=== PATIENT | female | born 1990 | race African-American/Black ===

== ENCOUNTER 2021-01-19 07:37 | Emergency (ER) | payer OTHER, SELFPAY ==
--- NOTE | ~2021-01-19 | CT_ITS ---
EXAMINATION: CT ABDOMEN AND PELVIS WITH CONTRAST CLINICAL INFORMATION: Right CVA tenderness COMPARISON: Previous CT of the abdomen and pelvis most recent September 2019 TECHNIQUE: Multidetector volumetric images were obtained from the superior aspect of the liver through the pubic symphysis following administration 85 mL of Omnipaque 350 intravenous contrast. Sagittal and coronal reformatted images were obtained on the technologist's workstation. Oral contrast: Yes This CT examination was performed using dose optimization techniques as appropriate, variously including the following: *Automated exposure control *Adjustment of mA and/or kV according to patient size (this includes techniques or standardized protocols for targeted exams where dose is matched to indication/reason for exam; i.e. extremities or head) *Use of iterative reconstruction technique DLP: 571 mGy-cm FINDINGS: LUNG BASES: The visualized lung bases are unremarkable. LIVER, GALLBLADDER, AND BILIARY TREE: The liver and gallbladder are unremarkable. No focal liver lesion or biliary duct dilatation. PANCREAS: Unremarkable. SPLEEN: Unremarkable. ADRENAL GLANDS: Unremarkable. KIDNEYS AND URETERS: There is ill-defined low-attenuation area seen in the lower pole of the right kidney. There is mild right hydronephrosis. There is enhancement of the right urothelium. There is mild perinephric fat stranding surrounding the right kidney. Findings are suggestive of infection/pyelonephritis. This is new from previous exam September 2019. The left kidney is unremarkable. No renal or ureteral stone is seen. BLADDER: Unremarkable. GASTROINTESTINAL TRACT: The small and large bowel are unremarkable. The appendix is unremarkable. ABDOMINAL WALL: No significant hernia is appreciated. LYMPH NODES: Normal. VASCULAR: Unremarkable. PELVIC VISCERA: Unremarkable. OSSEOUS STRUCTURES: Unremarkable. CT/CT abdomen pelvis w con IMPRESSION: Ill-defined low-attenuation areas in the right kidney, mild right hydronephrosis and mild enhancement of the right urothelium. Findings are suggestive of infection/pyelonephritis. No stone is seen.
[2021-01-19 08:09] VITALS: BP 103/63; PULSE 110; RESP 18; TEMP 38.2; O2SAT 99; BMI 27.8
--- NOTE | 2021-01-19 09:01 | ED_ITS ---
HPI - General Adult General Chief complaint: General Medical Stated complaint: flu like symptoms Time Seen by Provider: 01/19/21 09:01 Source: patient Mode of arrival: ambulatory Limitations: no limitations History of Present Illness HPI narrative: 31-year-old female presents for 2 days of chills, fever, body aches, and headaches. Patient is not vaccinated for COVID. Patient also describes a fishy odor to her urine and to her vaginal discharge. Patient is on her period now. No dysuria, no hematuria, no urgency or frequency. No pelvic pain, no nausea, vomiting, or abdominal pain. Patient is sexually active. No URI symptoms, no cough or runny nose. Patient states she has had a kidney infection for which she was hospitalized in the past, and this feels like a kidney infection today. Related Data Previous Rx's Medication Instructions Recorded ibuprofen 800 mg tablet 800 mg PO Q8H 14 Days #42 tab 01/19/21 levofloxacin 750 mg tablet 750 mg PO DAILY 7 Days #7 tab 01/19/21 ondansetron HCl 4 mg tablet 4 mg PO Q8H 1 Days #3 tab 01/19/21 (Zofran) Allergies Allergy/AdvReac Type Severity Reaction Status Date / Time No Known Allergies Allergy Verified 01/19/21 08:15 [No Known Allergies*] Review of Systems Constitutional: Constitutional: Reports body ache(s), Reports fatigue and Reports malaise Eyes: Eyes: Denies diplopia ENT: Denies vertigo, Denies dizziness, Denies otalgia, Denies mouth pain, Denies post nasal drip, Denies sinus pain, Denies sinus pressure, Denies sore throat and Denies throat swelling Cardiovascular: Cardiovascular: Denies chest pain, Denies syncope, Denies leg edema, Denies lightheadedness, Denies Loss of Consciousness, Denies palpitations and Denies dyspnea Respiratory: Respiratory: Denies chest congestion, Denies cough and Denies dyspnea Gastrointestinal: Gastrointestinal: Denies abdominal pain, Denies hematoc hezia, Denies constipation, Denies diarrhea and Denies vomiting Genitourinary: Genitourinary: Denies dysuria, Denies pelvic pain, Reports flank pain (right), Denies urinary incontinence, Denies urinary hesitancy, Denies urinary urgency, Reports vaginal discharge and Reports vaginal odor Musculoskeletal: Musculoskeletal: Reports myalgias Integumentary/Breasts: Skin/Breast: Denies erythema and Denies rash Neurologic: Denies confusion, Denies vertigo, Denies dizziness and Denies syncope Psychiatric: Psychiatric: Denies anxiety, Denies confusion and Denies depression Endocrine: Endocrine: Reports fatigue and Denies palpitations Allergic/Immunologic: Allergic/Immunologic: Denies throat swelling PMFSH Past Medical History Medical History (Updated 01/19/21 @ 14:21 by SEEMA Silverman) No known health problems Social History Social History Advance Directives: No Patient : No Physical Exam Vital Signs: Vital Signs: Last Vital Signs Temp 99.0 F 01/19/21 11:30 Pulse 78 01/19/21 11:30 Resp 18 01/19/21 11:30 BP 120/70 01/19/21 11:30 Pulse Ox 97 01/19/21 11:30 Body Mass Index 27.8 Const: General: no acute distress, alert, awake and ill appearing acutely; No confusion Nutritional Appearance: well nourished Orientation/consciousness: patient oriented x3 and No confusion Limitations: no limitations HENMT: Head: Yes normal to inspection, Yes normocephalic and Yes atraumatic Ears: hearing grossly normal bilaterally, external ears normal, TM's normal bilaterally and EAC's normal General nose exam: Normal external nose present Face and sinus: Yes normal facial exam and Yes sinuses nontender Mouth: Normal oral and palatal mucosa present Throat: Yes posterior oropharynx normal Eyes: Conjunctivae: conjunctivae normal Pupils: Equal, round and reactive pupils present EOM: EOMs intact bilaterally Neck: Neck: Yes full ROM, Yes no lymphadenopathy and Yes supple Resp: Effort & Inspection: normal respiratory effort and able to speak in complete sentences Auscultation: clear to auscultation bilaterally, no crackles, no rales, no rhonchi and no wheezes Cardio: Rate: regular rate Rhythm: regular rhythm Heart sounds: S1 normal heart sound present and S2 normal heart sound present GI: Inspection: Yes normal to inspection Palpation (GI): Soft to palpation, nontender, no guarding and not rigid Percussion: Yes normal to percussion Auscultation: normal bowel sounds : General: Yes CVA tenderness on the right External Female Exam: normal external appearance Speculum Exam - Vagina: vaginal bleeding Speculum Exam - Cervix: normal appearance of the cervix and nontender Bimanual exam- vagina & uterus: No Cervical tenderness present OB/external & speculum: vaginal bleeding Back/Spine/Pelvis: Back: CVA tenderness Skin: General skin exam: no rashes or lesions noted Neuro: General: patient oriented x3 and No confusion Cranial nerves: Yes Equal, round and reactive pupils present Extrem: General: Yes normal to inspection and Yes full ROM Psych: Appearance: grossly normal Affect: normal affect Attitude: fran ative Thought process: Normal thought process present Course Course Course Narrative: 31-year-old female presents for 2 days of fever, chills, body ache, right flank pain, vaginal discharge and foul odor to her urine. Patient is febrile with a heart rate of 110. On exam, patient has rigors and right CVA tenderness. Will get urine, labs, blood cultures, lactate, start fluids, get pelvic exam, CT to rule out pyelonephritis. Patient's labs are remarkable only for mildly elevated aminotransferase is. Patient's urine is dirty, positive nitrate, positive leukocyte esterase, 15-29 white blood cells. Started patient on Levaquin Awaiting CT scan which is not been read. Called lab about BV swabs, those will return tomorrow. Ill-defined low-attenuation areas in the right kidney, mild right hydronephrosis and mild enhancement of the right urothelium. Findings are suggestive of infection/pyelonephritis.? No stone is seen. Will treat with levofloxacin. Counseled patient to return if she had worsening back pain, fevers, nausea, vomiting. On re-examine, patient is feeling much better, heart rate is within normal limits, patient is not afebrile. Discussed with patient to have a low threshold to return to the emergency room. We did not get the swab for the bacterial vaginosis back yet today, will call her tomorrow if it is positive. Medical Decision Making Lab Data Result diagrams: 01/19/21 09:31 01/19/21 09:32 Labs: Lab Results 01/19/21 01/19/21 01/19/21 Range/Units 09:23 09:24 09:31 WBC 10.8 (4.8-10.8) X10*3/uL RBC 4.68 (4.20-5.50) X10*6/uL Hgb 12.0 (12.0-16.0) g/dl Hct 36.3 L (37-47) % MCV 77.6 L (80-98) fL MCH 25.6 L (27.0-33.0) pg MCHC 33.1 (31.0-35.0) g/dl RDW 13.5 (11.0-16.0) % Plt Count 286 (160-400) X10*3/uL MPV 11.0 (9.4-12.3) fL Immature Gran % (Auto) 0.3 (0.0-0.4) % Neut % (Auto) 76.7 H (45-73) % Lymph % (Auto) 7.6 L (20-40) % [place] % (Auto) 14.7 H (2-11) % Eos % (Auto) 0.2 (0-4) % Baso % (Auto) 0.5 (0-2) % Lymph # (Auto) 0.8 L (1.2-4.9) X10*3/uL [place] # (Auto) 1.6 H (0.1-1.2) X10*3/uL Eos # (Auto) 0.0 (0.0-0.4) X10*3/uL Baso # (Auto) 0.1 (0.0-0.2) X10*3/uL Abs Immat Gran (auto) 0.03 (0.00-0.03) X10*3/uL Absolute Neuts (auto) 8.3 (2.0-8.3) X10*3/uL Absolute Nucleated RBC 0.000 (0.0-0.012) X10*3/uL Nucleated RBC % (auto) 0.0 (0.0-0.2) /100WBC Smear Tech's Comments VERIFIED Sodium (135-145) mmol/L Potassium (3.3-5.1) mmol/L Chloride (96-108) mmol/L Carbon Dioxide (22-29) mmol/L Anion Gap (12-20) BUN (9-16) mg/dL Creatinine (0.5-1.4) mg/dL Estim Creat Clear Calc Estimated GFR Random Glucose (60-115) mg/dL Lactic Acid (0.5-2.0) mmol/L Calcium (8.4-10.2) mg/dL Total Bilirubin (0.0-1.0) mg/dL AST (5-31) U/L ALT (0-31) U/L Alkaline Phosphatase (39-117) U/L Total Protein (6.5-8.0) g/dL Albumin (3.5-5.0) g/dL Beta HCG, Quant mIU/mL Urine Color YELLOW Urine Appearance HAZY Urine pH 6.0 (5.0-8.0) Ur Specific [place] 1.010 (1.005-1.025) Urine Protein 1+ H (NEG-TRACE) MG/DL Urine Glucose (UA) NEG (NEG) MG/DL Urine Ketones NEG (NEG) MG/DL Urine Blood 3+ H (NEG) Urine Nitrite POS H (NEG) Ur Leukocyte Esterase 1+ H (NEG) Urine RBC 30-49 H (0) /HPF Urine WBC 15-29 H (0-4) /HPF Ur Squamous Epith Cells 1+ /LPF Urine Bacteria 4+ /LPF Coronavirus (PCR) NEGATIVE (Negative) Influenza Type A (PCR) NEGATIVE (Negative) Influenza Type B (PCR) NEGATIVE (Negative) RSV RNA Qual (PCR) NEGATIVE (Negative) 01/19/21 01/19/21 Range/Units 09:32 10:00 WBC (4.8-10.8) X10*3/uL RBC (4.20-5.50) X10*6/uL Hgb (12.0-16.0) g/dl Hct (37-47) % MCV (80-98) fL MCH (27.0-33.0) pg MCHC (31.0-35.0) g/dl RDW (11.0-16.0) % Plt Count (160-400) X10*3/uL MPV (9.4-12.3) fL Immature Gran % (Auto) (0.0-0.4) % Neut % (Auto) (45-73) % Lymph % (Auto) (20-40) % [place] % (Auto) (2-11) % Eos % (Auto) (0-4) % Baso % (Auto) (0-2) % Lymph # (Auto) (1.2-4.9) X10*3/uL [place] # (Auto) (0.1-1.2) X10*3/uL Eos # (Auto) (0.0-0.4) X10*3/uL Baso # (Auto) (0.0-0.2) X10*3/uL Abs Immat Gran (auto) (0.00-0.03) X10*3/uL Absolute Neuts (auto) (2.0-8.3) X10*3/uL Absolute Nucleated RBC (0.0-0.012) X10*3/uL Nucleated RBC % (auto) (0.0-0.2) /100WBC Smear Tech's Comments Sodium 137 (135-145) mmol/L Potassium 4.0 (3.3-5.1) mmol/L Chloride 105 (96-108) mmol/L Carbon Dioxide 23 (22-29) mmol/L Anion Gap 13 (12-20) BUN 8 L (9-16) mg/dL Creatinine 0.74 (0.5-1.4) mg/dL Estim Creat Clear Calc 113.1 Estimated GFR > 60 Random Glucose 94 (60-115) mg/dL Lactic Acid 0.9 (0.5-2.0) mmol/L Calcium 9.4 (8.4-10.2) mg/dL Total Bilirubin 0.7 (0.0-1.0) mg/dL AST 37 H (5-31) U/L ALT 45 H (0-31) U/L Alkaline Phosphatase 85 (39-117) U/L Total Protein 7.7 (6.5-8.0) g/dL Albumin 4.3 (3.5-5.0) g/dL Beta HCG, Quant < 2 mIU/mL Urine Color Urine Appearance Urine pH (5.0-8.0) Ur Specific [place] (1.005-1.025) Urine Protein (NEG-TRACE) MG/DL Urine Glucose (UA) (NEG) MG/DL Urine Ketones (NEG) MG/DL Urine Blood (NEG) Urine Nitrite (NEG) Ur Leukocyte Esterase (NEG) Urine RBC (0) /HPF Urine WBC (0-4) /HPF Ur Squamous Epith Cells /LPF Urine Bacteria /LPF Coronavirus (PCR) (Negative) Influenza Type A (PCR) (Negative) Influenza Type B (PCR) (Negative) RSV RNA Qual (PCR) (Negative) Discharge Plan Discharge Clinical Impression: Pyelonephritis Patient Disposition: Home, Self-Care Instructions: Kidney Infection (ED) Additional Instructions: Please go home and rest. Please drink plenty of fluids. I want you to drink 2- 3 L of water a day for the next 3 days. Please take the antibiotic once a day as I prescribed, you may take ibuprofen 3 times a day every 8 hours. Take the Zofran for nausea as needed. Please return to the emergency room if you have worsening back pain, fevers, nausea and vomiting were you cannot eat or drink. We did not get the swab for the bacterial vaginosis back yet today, will call you tomorrow if it is positive. Please call your PCP for a follow up appointment Prescriptions: New levofloxacin 750 mg tablet 750 mg PO DAILY 7 Days Qty: 7 RF: 0 ibuprofen 800 mg tablet 800 mg PO Q8H 14 Days Qty: 42 RF: 0 ondansetron HCl [Zofran] 4 mg tablet 4 mg PO Q8H 1 Days Qty: 3 RF: 0
[2021-01-19] MEDS: Ibuprofen 800 MG TABLET PO (09:37)
[2021-01-19] MEDS: 0.9 % Sodium Chloride 1,000 ML 2250 ML IV (09:37)
[2021-01-19] MEDS: Acetaminophen 325 MG TABLET 975 MG PO (09:37)
[2021-01-19 09:39] LABS: Appearance Urine HAZY; Color Urine YELLOW; Glucose Urine UA NEG (NEG); Leukocyte Esterase Urine 1+ (NEG); Nitrite Urine POS (NEG); UACC Culture Trigger YES; Urine Blood 3+ (NEG); Urine Ketones NEG (NEG); Urine Protein 1+ MG/DL (NEG-TRACE)
[2021-01-19 09:39] LABS: Basophils Absolute Auto 0.1 X10*3/uL (0.0-0.2); Basophils Percent Auto 0.5 % (0-2); Eosinophils Percent Auto 0.2 % (0-4); Hematocrit 36.3 % (37-47); Imm Gran Abs Auto 0.03 X10*3/uL (0.00-0.03); Imm Gran Pct Auto 0.3 % (0.0-0.4); Lymphocytes Absolute Auto 0.8 X10*3/uL (1.2-4.9); Lymphocytes Percent Auto 7.6 % (20-40); MANUAL DIFF FLAG SCAN; Mean Corpuscular HGB Conc 33.1 g/dl (31.0-35.0); Mean Corpuscular Hemoglobin 25.6 pg (27.0-33.0); Mean Corpuscular Volume 77.6 fL (80-98); Monocytes Absolute Auto 1.6 X10*3/uL (0.1-1.2); Monocytes Percent Auto 14.7 % (2-11); Neutrophils Absolute Auto 8.3 X10*3/uL (2.0-8.3); Neutrophils Percent Auto 76.7 % (45-73); Platelet Count 286 X10*3/uL (160-400); Red Blood Count 4.68 X10*6/uL (4.20-5.50); Red Cell Distribution Width 13.5 % (11.0-16.0); SCAN SMEAR FLAG 1; White Blood Count 10.8 X10*3/uL (4.8-10.8)
[2021-01-19 09:45] LABS: Bacteria Urine 4+ /LPF; RBC Urine 30-49 /HPF (0); Squamous Epithelial Cell Urine 1+ /LPF; UACC CULT YES
[2021-01-19 09:57] LABS: SLIDE REVIEW VERIFIED
[2021-01-19 09:57] LABS: Alanine Aminotransferase 45 U/L (0-31); Albumin Level 4.3 g/dL (3.5-5.0); Alkaline Phosphatase 85 U/L (39-117); Anion Gap 13 (12-20); Aspartate Amino Transferase 37 U/L (5-31); Bilirubin Total 0.7 mg/dL (0.0-1.0); Blood Urea Nitrogen 8 mg/dL (9-16); Calcium 9.4 mg/dL (8.4-10.2); Carbon Dioxide 23 mmol/L (22-29); Chloride 105 mmol/L (96-108); Creatinine Clr Calc Pharmacy 113.1; Estimated Glomerular Filt Rate > 60; Glucose Random 94 mg/dL (60-115); Sodium 137 mmol/L (135-145); Total Protein 7.7 g/dL (6.5-8.0)
[2021-01-19 10:24] LABS: Lactic Acid 0.9 mmol/L (0.5-2.0)
[2021-01-19] MEDS: levoFLOXacin 750 MG TABLET PO (10:36)
[2021-01-19 10:50] VITALS: RESP 18
[2021-01-19 11:30] VITALS: BP 120/70; PULSE 78; RESP 18; TEMP 37.2; O2SAT 97
[2021-01-19 11:59] LABS: Influenza A PCR NEGATIVE (Negative); Influenza B PCR NEGATIVE (Negative); Resp Syncy Virus RNA Qual PCR NEGATIVE (Negative); SARS COV2 PCR INHOUSE NEGATIVE (Negative)
[2021-01-19 12:00] VITALS: BP 112/70; PULSE 80; RESP 18; TEMP 37.2; O2SAT 97
[2021-01-19 12:24] LABS: HCG Quantitative < 2 mIU/mL
[2021-01-19] MEDS: iohexoL 350 MG/ML 100 ML INFUS..BTL IV (12:57)
[2021-01-20 08:49] LABS: BV Int Neg Control Negative (Negative); BV Int Pos Control Positive (Positive)
== END 2021-01-19 14:58 | disposition home or self-care (01) ==
PROVIDERS: Physician Assistant; Physician Assistant Medical; Emergency Provider Internal Medicine
DX: N10 Acute pyelonephritis (principal); N76.0 Acute vaginitis; R50.9 Fever, unspecified; R10.9 Unspecified abdominal pain; M79.10 Myalgia, unspecified site; Z20.822 Contact with and (suspected) exposure to COVID-19; Z79.899 Other long term (current) drug therapy
CPT/HCPCS: 0241U; 36415; 74177; 80053; 81001; 83605; 84702; 85025; 87040; 87086; 87088; 87186; 87480; 87510; 87660; 99284; Q9967